=== PATIENT | male | born 1985 | race Caucasian/White ===

== ENCOUNTER 2017-03-11 17:31 | Inpatient (IN) | payer BC, OTHER ==
[~2017-03-11] VITALS: Ht 175.3 cm; Wt 77.1 kg
[2017-03-12 00:10] VITALS: BP 127/87
--- NOTE | 2017-03-12 00:10 | NUR ---
Pre-admission assessment Patient is a 31-year old, male, seen at intake, AAOx4, no SOB and no anxiety noted at this time. Discussed with patient admission policies of the unit. Patient is coherent and able to respond to questions appropriately. Patient reported that he is from [place]. He reports NKA and with no history of seizure. With reported medical history of Spinal Fusion in 2012, Hand Surgery-both in 2016, Anxiety and Depression. Pt is ambulatory with steady gait. Pt reports that he has been using these substances: 1) Zwkledo-Ffuxh-Kv reports drinking since 18 years old, but for the past 1 year has been consuming "a varied amount" of Vodka 3-4times a week, per pt "depending on my mood", last drink was 03/11/17 at 2200, 2 travel bottles of Vodka. 2) Xanax-Pt reports taking since 18 years old, but for the past 2 weeks has been taking 2-4 mg PO daily, last took was 2mg at 1700. 3) Heroin-Pt reports using daily via IV since 09/2016, 1.0 to 1.5 gm, last used 03/11/2017 at 2330. 4) Methamphetamine- Pt reports using daily via IV since 09/2016, 0.6 to 0.8 gm, last used 03/11/2017 at 2330. Vital signs taken and as follows: ZZ=639/87, P=114, O2 sat on RA=96%, RR=22, T=98.8. Pt verbalized instructions and teachings regarding disposal of narcotic and other controlled home meds, unit protocols such as taking of vital signs Q4H and handling and disposal of contraband.
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
[2017-03-12] MEDS ORDERED: ALPR2TAB7 PO (01:53)
[2017-03-12] MEDS ORDERED: OXYC30TA86 PO (01:53)
[2017-03-12 02:04] LABS: ALANINE AMINOTRANSFERASE 22 U/L (16-63); ALKALINE PHOSPHATASE 95 U/L (50-136); AMYLASE 93 U/L (25-115); ASPARTATE AMINOTRANSFERASE 17 U/L (15-37); BILIRUBIN,TOTAL 0.5 mg/dL (0.2-1.0); CARBON DIOXIDE 30 mmol/L (21-32); CHLORIDE 100 mmol/L (98-107); GLUCOSE 127 mg/dL (74-106); LIPASE 83 U/L (73-393); MAGNESIUM 1.7 mg/dL (1.8-2.4); POTASSIUM 4.1 mmol/L (3.5-5.1); TOTAL PROTEIN, SERUM 7.4 g/dL (6.4-8.2); UREA NITROGEN, BLOOD 9 mg/dL (7-18)
[2017-03-12 02:06] LABS: ETHANOL < 3 MG/DL (0-0)
[2017-03-12 02:08] LABS: *AMPHETAMINE, URINE POSITIVE (NEGATIVE); *BARBITURATE, URINE NEGATIVE (NEGATIVE); *CANNABINOID, URINE NEGATIVE (NEGATIVE); *COCCAINE, URINE NEGATIVE (NEGATIVE); *OPIATE, URINE POSITIVE (NEGATIVE); *PHENCYCLIDINE SCREEN,URINE NEGATIVE (NEGATIVE)
[2017-03-12 02:18] LABS: THYROID STIMULATING HORMONE 1.028 mIU/mL (0.358-3.740)
[2017-03-12 02:38] LABS: HEMATOCRIT 38.6 % (40-50); HEMOGLOBIN 13.3 G/DL (14.0-18.0); MEAN CORPUSCULAR HGB CONC 35 g/dL (32.0-37.0); MEAN CORPUSCULAR VOLUME 81.2 FL (82.0-92.0); RED BLOOD CELL COUNT(AUTO) 4.75 MIL/UL (4.7-6.1); WHITE BLOOD COUNT (AUTO) 6.1 K/UL (4.0-11.2)
[2017-03-12 02:39] LABS: BASOPHILS % (AUTO) 0.3 % (0.0-2.0); EOSINOPHILS # (AUTO) 0.2 K/uL (0.0-0.7); EOSINOPHILS % (AUTO) 2.5 % (0.0-7.0); LYMPHOCYTES # (AUTO) 1.5 K/UL (0.8-4.8); LYMPHOCYTES % (AUTO) 25.4 % (20.5-51.5); MONOCYTES # (AUTO) 0.5 K/UL (0.1-1.30); MONOCYTES % (AUTO) 8.7 % (0.0-11.0); NEUTROPHILS # (AUTO) 3.8 K/UL (1.8-8.9); NEUTROPHILS % (AUTO) 63.1 % (38.5-71.5); PLATELET COUNT (AUTO) 207 K/UL (150-450)
[2017-03-12 04:00] VITALS: BP 118/78
--- NOTE | 2017-03-12 04:00 | NUR ---
COWS, CIWA DEFERRED Pt lying in bed with eyes closed noted to be asleep. Respirations 16, breathing even and unlabored. Safety measures in place. Will monitor.
--- NOTE | 2017-03-12 07:18 | NUR ---
END OF SHIFT Pt is a 31 year old male patient admitted on 03/12/17 for ETOH dependency. Pt is full code with NKA. He reports a PMHx of depression, anxiety, spinal fusion, and bilateral hand surgery. He did not receive or request PRN medications. He slept a total of 5 hrs, Intake: 500 mL, Void: x1, BM:0. COWS:3, CIWA:3. Pt remains alert and oriented x4, breathing even and unlabored. Safety measures in place. Endorsed to oncoming shift.
--- NOTE | 2017-03-12 07:55 | NUR ---
Start of shift note; Received report from night nurse. Patient is a 31 year old male admitted on 03/11/17 for ETOH/Opiate dependence. Patient to be evaluated by MD today. Patient is on full code status, regular diet, NKA. Patient reported history of anxiety,depression, spinal fusion, bilateral hand surgery. Magnesium to be replaced today per MD order. Patient is on fall and seizure precaution. Bed in lowest position, call light within reach. Will continue to monitor patient.
[2017-03-12 08:00] VITALS: BP 100/67
--- NOTE | 2017-03-12 09:00 | NUR ---
Magnesium supplement; Patient's magnesium is low (1.7), one time order for Magnesium oxide 400mg PO given for supplement per MD order
[2017-03-12 12:00] VITALS: BP 120/82
--- NOTE | 2017-03-12 13:00 | NUR ---
PRN medication; Patient's current CIWA score is 7 manifested by nausea, anxiety, hot and cold sweats,muscle aches, PRN Ativan 1mg PO given for CIWA >5 . PRN [id number] ODT also given for nausea. Will continue to monitor patient for effectiveness of medication.
--- NOTE | 2017-03-12 14:00 | NUR ---
Re-assessment; Patient's current CIWA score is 4, patient stated improvement of nausea, no anxiety noted. PRN Ativan and PRN Zofran are both effective.
--- NOTE | 2017-03-12 14:30 | NUR ---
MD order; ordered a 4 day Subutex taper to start tomorrow AM. Order was verified with MD and carried out.
--- NOTE | 2017-03-12 18:22 | NUR ---
End of shift note; Patient is AOX4. Patient is a 31 year old male admitted on 03/11/17 for ETOH/Opiate dependence. Patient to start 4 day Subutex taper tomorrow per MD order. Patient is on full code status, regular diet, NKA. Patient reported history of anxiety, depression, spinal fusion, bilateral hand surgery. Magnesium was supplemented. Patient remained compliant with treatment plan and medication regime. Patient is on fall and seizure precaution. Met all needs.
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
[2017-03-12 20:00] VITALS: BP 127/83
--- NOTE | 2017-03-12 20:28 | NUR ---
PRN BENADRYL, ROBAXIN, ZOFRAN, ATIVAN Pt complains of inability to sleep, body aches, nausea, anxiety and agitation. PRN Benadryl, Robaxin, Zofran SL and Ativan administered as ordered. CIWA:10 Will monitor effectiveness.
--- NOTE | 2017-03-12 21:00 | NUR ---
PRN ZOFRAN REASSESSMENT PRN medication effective. Pt lying in bed with eyes closed noted to be resting comfortably in bed. Will monitor.
--- NOTE | 2017-03-12 21:30 | NUR ---
PRN BENADRYL, ROBAXIN, ATIVAN REASSESSMENT PRN Benadryl ineffective. Pt still awake at this time, but reports feeling drowsy. PRN Robaxin effective. Pt reports decrease in body aches. PRN Ativan effective. Pt appears more calm, lying in bed and appears comfortable. CIWA:9. Will continue to monitor.
--- NOTE | 2017-03-12 23:03 | NUR ---
PRN SUBUTEX/CLONIDINE Pt complains of anxiety, agitation, and body aches. Pt observed with flushed face, diaphoresis, restlessness, and agitation. COWS:14, CIWA:10. PRN Subutex 4 mg and Clonidine administered as ordered for withdrawal symptoms. Safety measures in place. Will monitor effectiveness.
--- NOTE | 2017-03-12 23:33 | NUR ---
PRN SUBUTEX REASSESSMENT Pt complains of nausea with episode of vomiting. Pt observed with decrease in withdrawal symptoms. COWS decreased to 12. Will monitor.
--- NOTE | 2017-03-12 23:34 | NUR ---
PRN ZOFRAN IM/ATIVAN Pt observed with nausea and vomiting x1 unrelieved by Zofran SL. Pt complains of anxiety and is observed to be sitting on couch in room, flushed, diaphoretic and agitated. CIWA: 10. PRN Zofran IM and Ativan 1 mg administered as ordered. Will monitor effectiveness.
[2017-03-13] VITALS: BP 126/77
--- NOTE | 2017-03-13 00:03 | NUR ---
PRN CLONIDINE REASSESSMENT PRN medication effective. Pt lying in bed with eyes closed noted to be asleep. Breathing even and unlabored, respirations 16. Safety measures in place. Will monitor.
--- NOTE | 2017-03-13 00:04 | NUR ---
PRN ZOFRAN IM REASSESSMENT PRN medication effective. Pt lying comfortably in bed, breathing even and unlabored. No facial grimacing noted. Will continue to monitor.
--- NOTE | 2017-03-13 00:34 | NUR ---
PRN ATIVAN REASSESSMENT PRN medication effective. Pt noted to be lying in bed with eyes closed noted to be asleep. No facial grimacing noted. Breathing even and unlabored. Safety measures in place. Will monitor.
--- NOTE | 2017-03-13 02:57 | NUR ---
PRN VISTARIL/ZOFRAN Pt complains of anxiety and nausea and reports episode of vomiting x1. PRN Vistaril and Zofran SL administered as ordered. Safety measures in place. Will monitor effectiveness.
--- NOTE | 2017-03-13 03:30 | NUR ---
PRN ZOFRAN/VISTARIL REASSESSMENT PRN Zofran somewhat effective. Pt denies an episode of vomiting but still reports feeling nauseous. PRN Vistaril effective. Pt noted with decreased anxiety and appears more calm. Will monitor.
[2017-03-13 04:00] VITALS: BP 108/64
--- NOTE | 2017-03-13 05:25 | NUR ---
PRN CLONIDINE/ROBAXIN Pt complains of anxiety/agitation and body aches 12/31. PRN Clonidine and Robaxin administered as ordered. Will monitor effectiveness.
--- NOTE | 2017-03-13 06:25 | NUR ---
PRN CLONIDINE/ROBAXIN REASSESSMENT PRN Clonidine ineffective. Pt still noted with increased agitation/anxiety. PRN Robaxin effective. Pt reports decrease in body aches.
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
--- NOTE | 2017-03-13 07:28 | NUR ---
Start of shift note; Received report from night nurse. Patient is a 31 year old male admitted on 03/11/17 for ETOH/Opiate dependence. Patient to start 4 day Subutex taper today per MD order. Patient is on full code status, regular diet, NKA. Patient reported history of anxiety,depression, spinal fusion, bilateral hand surgery. Patient received PRN medications last night noted to be effective per endorsement. Patient is on fall and seizure precaution. Bed in lowest position, call light within reach. Will continue to monitor patient.
[2017-03-13 08:00] VITALS: BP 104/64
--- NOTE | 2017-03-13 10:13 | NUR ---
Re-assessment; Patient appears calm and comfortable at this time with current CIWA score of 7. Ativan noted to be effective.
--- NOTE | 2017-03-13 10:13 | NUR ---
MD order; Patient appears to be very anxious, agitated, hot and cold sweats with obvious signs and symptoms of withdrawals HR of 102 noted. Patient was also having SOB, HOB elevated, SPO2 of 98% noted on room air. MD was notified. MD ordered one time dose of Ativan 2mg PO one time only. Medication given to patient as ordered. Will continue to monitor patient.
--- NOTE | 2017-03-13 10:33 | NUR ---
PRN medication; Patient is complaining of nausea, PRN Zofran 4mg ODT given. Will continue to monitor patient for effectiveness of medication.
[2017-03-13 11:07] LABS: HEPATITIS B SURFACE AG Negative (Negative)
--- NOTE | 2017-03-13 11:31 | NUR ---
Re-assessment; Patient denies nausea at this time. PRN Zofran noted to be effective.
[2017-03-13 12:00] VITALS: BP 105/62
--- NOTE | 2017-03-13 12:53 | NUR ---
New order and PRN medication; Patient is complaining of low back pain rated 9/10 d/t history of back surgery. PRN Toradol 30mg IM given for severe pain. MD also ordered Vistaril 50mg QID, first dose given at 1230, 1300 dose non administered d/t medication order error per MD. Will continue to monitor patient. .
--- NOTE | 2017-03-13 13:53 | NUR ---
Re-assessment; Patient stated improvement of lower back pain, patient stated his pain went down to 4/10 from 9/10. Toradol PRN is effective.
[2017-03-13 16:00] VITALS: BP 106/60
--- NOTE | 2017-03-13 18:22 | NUR ---
End of shift note; Patient is AOX4. Patient is a 31 year old male admitted on 03/11/17 for ETOH/Opiate dependence. Patient to start 4 day Subutex taper tomorrow per MD order. Patient is on full code status, regular diet, NKA. Patient reported history of anxiety, depression, spinal fusion, bilateral hand surgery. Magnesium was supplemented. Patient remained compliant with treatment plan and medication regime. Patient's last COWS score is 5 and last CIWA score is 2 at 1600. Patient is on fall and seizure precaution. Met all needs.
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
--- NOTE | 2017-03-13 19:45 | NUR ---
PRN TORADOL Pt complains of lower back pain 01/31 related to spinal fusion. PRN Toradol IM administered as ordered for pain. Will monitor effectiveness.
[2017-03-13 20:00] VITALS: BP 107/74
--- NOTE | 2017-03-13 20:15 | NUR ---
PRN TORADOL REASSESSMENT PRN medication effective. Pt observed to be resting comfortably in bed, no facial grimacing noted. Pain decreased to 5/10. Will monitor.
[2017-03-14] VITALS: BP 100/60
--- NOTE | 2017-03-14 | NUR ---
COWS/CIWA DEFERRED Pt lying in bed with eyes closed noted to be asleep. Respirations 16, breathing is even and unlabored. Safety measures in place. Will monitor.
--- NOTE | 2017-03-14 03:43 | NUR ---
PRN TORADOL Pt complains of lower back pain 03/03. PRN Toradol administered as ordered. Will monitor effectiveness.
[2017-03-14 04:03] VITALS: BP 95/55
--- NOTE | 2017-03-14 04:08 | NUR ---
PRN ROBAXIN Pt complains of muscle aches 12/01. PRN Robaxin administered as ordered. Safety measures in place. Will monitor effectiveness.
--- NOTE | 2017-03-14 04:15 | NUR ---
PRN TORADOL REASSESSMENT PRN medication somewhat effective. Pt still reports lower back pain unrelieved at this time. Will monitor
--- NOTE | 2017-03-14 05:08 | NUR ---
PRN ROBAXIN REASSESSMENT PRN medication effective. Pt lying in bed with eyes closed noted to be asleep. No facial grimacing noted. Respirations 16, breathing is even and unlabored. Safety measures in place. Will monitor.
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
[2017-03-14 08:06] LABS: BASOPHILS % (AUTO) 0.3 % (0.0-2.0); EOSINOPHILS # (AUTO) 0.1 K/uL (0.0-0.7); HEMOGLOBIN 13.8 G/DL (14.0-18.0); LYMPHOCYTES # (AUTO) 1.6 K/UL (0.8-4.8); LYMPHOCYTES % (AUTO) 26.6 % (20.5-51.5); MEAN CORPUSCULAR HEMOGLOBIN 26.8 UUG (27.0-31.0); MEAN CORPUSCULAR HGB CONC 33 g/dL (32.0-37.0); MEAN CORPUSCULAR VOLUME 81.4 FL (82.0-92.0); MONOCYTES # (AUTO) 0.5 K/UL (0.1-1.30); MONOCYTES % (AUTO) 8.6 % (0.0-11.0); NEUTROPHILS # (AUTO) 3.8 K/UL (1.8-8.9); NEUTROPHILS % (AUTO) 62.5 % (38.5-71.5); PLATELET COUNT (AUTO) 227 K/UL (150-450); RED BLOOD CELL COUNT(AUTO) 5.16 MIL/UL (4.7-6.1)
[2017-03-14 08:18] VITALS: BP 117/81
[2017-03-14 08:55] LABS: MAGNESIUM 2.1 mg/dL (1.8-2.4); PHOSPHOROUS 4.2 mg/dL (2.5-4.9); POTASSIUM 4.2 mmol/L (3.5-5.1)
--- NOTE | 2017-03-14 09:33 | NUR ---
PRN ATIVAN 1MG Patient's CIWA is 8, complains of withdrawal (nausea, stomach cramps, body aches, anxiety, tremors, chills). Patient received Ativan 1mg po. Will continue to monitor patient.
--- NOTE | 2017-03-14 09:52 | NUR ---
START OF SHIFT Received report from plant operator/shift supervisor nurse. Patient is 31 year old male admitted for medically supervised withdrawal from alcohol and opiates. Patient is full code with NKA. Patient on 4-day subutex taper. On assessment this AM: CIWA: 8 and COWS: 9. Denies SOB, chest pain. Patients vitals signs WNL. Reports anxiety, body aches, nausea, body aches, stomach cramps, tremors and clammy skin. Med compliant with AM meds. PRN Ativan 1mg po given (CIWA 8). Patient was encouraged to attend group meetings today. Will continue to monitor patient.
--- NOTE | 2017-03-14 10:23 | NUR ---
PRN ONDANSETRON ODT Patient complains of nausea, no vomiting. PRN ondansetron ODT given. Will continue to monitor patient.
--- NOTE | 2017-03-14 10:24 | NUR ---
PRN TORADOL IM INJECTION Patient complains of pain 8/10, low back and both legs. PRN toradol IM injection given. will continue to monitor patient.
--- NOTE | 2017-03-14 10:33 | NUR ---
REASSESSMENT PRN ATIVAN 1MG Patient's current CIWA is 5, medication effective.
--- NOTE | 2017-03-14 10:54 | NUR ---
REASSESSMENT PRN TORADOL IM INJECTION Patient reports pain decreased to 5/10.
--- NOTE | 2017-03-14 11:23 | NUR ---
REASSESSMENT PRN ONDANSETRON ODT Patient reports nausea improved, med effective.
--- NOTE | 2017-03-14 11:33 | NUR ---
Endorsed patient to MAURICE Pace.
--- NOTE | 2017-03-14 11:35 | NUR ---
received pt from day shift nurseAndria pt is in stable condition at this time
[2017-03-14 13:00] VITALS: BP 105/65
--- NOTE | 2017-03-14 13:38 | NUR ---
Therapist prompted client about group times. Client stated he will attend all groups.
[2017-03-14 17:33] VITALS: BP 100/62
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
--- NOTE | 2017-03-14 19:34 | NUR ---
end of shift note: pt is in stable condition no s/s of pain or discomfort, pt was started on an ativan taper today. no A/R noted. pt is depressed verbalized to pt will speak with psychiatrist regarding concerns. pt did not attend groups or activities. will endorse pt to awake overnight counselor nurse
[2017-03-14 20:00] VITALS: BP 99/65
--- NOTE | 2017-03-14 21:00 | NUR ---
CLONIDINE HELD Clonidine held d/t BP 99/65, per order to hold if BP <100/70. Safety measures in place. Call light within reach. Will continue to monitor.
[2017-03-15] VITALS: BP 84/45
--- NOTE | 2017-03-15 | NUR ---
VITAL SIGNS BP 84/45, P 78, R 15, 02 95%, T 97.7 PA 0 COWS/CIWA deferred, pt is laying in bed with eyes closed, to be assessed when pt is awake per orders. Respirations even and unlabored. Safety measures in place. Call light within reach. Will continue to monitor.
[2017-03-15 04:00] VITALS: BP 111/74
--- NOTE | 2017-03-15 04:00 | NUR ---
VITAL SIGNS BP 111/74, P 51, R 16, 02 99%, T 97.7, PA 0/10 COWS/CIWA deferred, pt is laying in bed with eyes closed, to be assessed when pt is awake per orders. Respirations even and unlabored. Safety measures in place. Call light within reach. Will continue to monitor.
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
[2017-03-15 08:00] VITALS: BP 97/60
--- NOTE | 2017-03-15 08:05 | NUR ---
START OF SHIFT: RECEIVED PT A/O X 4. HE PRESENTS WITH FLAT AFFECT AND DEPRESSED MOOD. POOR EYE CONTACT NOTED. HE DENIES S/I AND H/I BUT DOES REPORT DEPRESSION,ANXIETY, BODY ACHES AND BACK PAIN 12/31. COWS 4 CIWA 4 MODIFIED ATIVAN AND SUBUTEX TAPER IN PROGRESS. PRN MOTRIN GIVEN TO MANAGE PAIN. WILL MONITOR EFFECTIVENESS OF PRN MED. PPD NEGATIVE. ENCOURAGED GROUP ATTENDANCE TO IMPROVE COPING SKILLS AND PREVENT RELAPSE. WILL CONTINUE TO MONITOR AND PROVIDE SAFE AND SUPPORTIVE ENVIRONMENT.
[2017-03-15 12:00] VITALS: BP 97/60
[2017-03-15 16:00] VITALS: BP 90/60
--- NOTE | 2017-03-15 16:54 | NUR ---
Therapist prompted client about group times. Client stated he did not go today because he is not feeling well. Client reports he will try to go to all groups tomorrow.
--- NOTE | 2017-03-15 18:37 | NUR ---
END OF SHIFT: PT CONTINUES ON ON MODIFIED SUBUTEX/ATIVAN TAPER. HE ISOLATES IN HIS ROOM AND SPENT MOST OF THE SHIFT IN BED. HE REPORTS DEPRESSION AND DENIES S/I AND H/I. CLINICAL TEAM MADE AWARE. LAST COWS 2 CIWA 1. ENCOURAGED PT TO INTERACT WITH PEERS AND ATTEND GROUPS BUT HE REFUSED. WILL CONTINUE TO MONITOR AND OFFER SUPPORT.
--- NOTE | 2017-03-15 19:05 | NUR ---
Start of Shift Patient Received. Patient is in his room, in bed with eyes close, responsive to verbal stimuli. Breathing even and non labored. No signs of pain or discomfort noted. Patient noted to be emotional. Patient is a 31 year old male admitted on 03/12/17 for ETOH and Opiate Dependence under the care of Dr. Bañuelos. Patient is currently receiving a modified Subutex and Ativan taper. Patient verbalizes no known allergies, wishes to be full code, following a regular diet, placed on fall and seizure precautions, skin noted intact. Past medical history noted as anxiety, depression, spinal fusion (2011), bilateral hand surgery (2015). Per endorsement, patient noted to be isolative to room, emotional, loss of appetite, and avoids eye contact. Patient reports feelings of depression but denies suicidal ideations. Patient was encouraged to attend social activities and group meetings but patient refused. Last noted CIWA 1 and COWS 2. All needs attended to promptly. Will continue plan of care as ordered.
[2017-03-15 20:24] VITALS: BP 130/82
--- NOTE | 2017-03-15 22:00 | NUR ---
PRN Medication Administration Patient verbalizing pain or 8/10 to lower back due to spinal fusion. PRN Toradol administered as per order. Will continue to monitor for effectiveness of medication
--- NOTE | 2017-03-15 23:00 | NUR ---
PRN Medication Reassessment Patient is a able to verbalize medication was effective in minimizing pain. Patient is able to verbalize tolerable pain of 4/10. Will continue to monitor.
[2017-03-16 00:10] VITALS: BP 98/53
[2017-03-16 04:49] VITALS: BP 97/60
--- NOTE | 2017-03-16 07:31 | NUR ---
End of Shift Patient is in bed sleeping but arousable to verbal stimuli. Breathing even and non labored. No pain or discomfort noted. Patient is a 31 year old male admitted on 03/12/17 for ETOH and Opiate Dependence. Patient is currently receiving a modified Subutex and Ativan taper. No known allergies, Full code, following a regular diet, placed on fall and seizure precautions, skin noted intact. Past medical history noted as anxiety, depression, spinal fusion (2012), bilateral hand surgery (2016). Patient was given PRN Toradol for increased lower back pain. Patient noted to go out for smoke breaks, noted to have snacks at bedside, and able to verbalize feelings. Offered support and patient was receptive. Last noted CIWA 2 and COWS 3. All needs attended to promptly. Will endorse to continue plan of care as ordered. Addendum: 03/16/17 at 0731 by UMESH SALAS LVN Amended: Links added.
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
[2017-03-16 08:20] VITALS: BP 95/68
--- NOTE | 2017-03-16 09:43 | NUR ---
PRN ZOFRAN Patient c/o increase nausea, patient was administered Zofran as ordered, will monitor effectiveness of medication.
--- NOTE | 2017-03-16 11:36 | NUR ---
ZOFRAN REASSESSMENT Patient reports medication effective no longer feels nausea, will continue to monitor.
--- NOTE | 2017-03-16 12:07 | NUR ---
PRN TORADOL Patient c/o back pain 01/31, provided with non pharmacological interventions with no relief, patient administered Toradol injection as ordered, injection well tolerated. will monitor effectiveness of medication.
[2017-03-16] MEDS ORDERED: IBUP-1955 PO (12:37)
[2017-03-16] MEDS ORDERED: GABA-534 PO (12:37)
[2017-03-16] MEDS ORDERED: TRAZ-144 PO (12:37)
[2017-03-16] MEDS ORDERED: CLON0.1T14 PO (12:37)
[2017-03-16] MEDS ORDERED: HYDR-3895 PO (12:37)
[2017-03-16] MEDS ORDERED: DICY20TA28 PO (12:37)
[2017-03-16] MEDS ORDERED: BACL20TA PO (12:37)
[2017-03-16 12:58] VITALS: BP 99/65
--- NOTE | 2017-03-16 13:07 | NUR ---
TORADOL REASSESSMENT Patient reports medication effective, current pain level 2/10, tolerable as per patient, will continue to monitor.
[2017-03-16 17:20] VITALS: BP 104/65
--- NOTE | 2017-03-16 19:00 | NUR ---
END OF SHIFT Patient alert and oriented x4, patient compliant with therapeutic plan of care. Vital signs were stable during shift. Patient completed Subutex and Ativan taper as ordered, medications were well tolerated, no ASE noted. Patient is scheduled to be discharged tomorrow, noted with increase in appetite during shift, encouraged to continue consuming adequate Meal intake as tolerated. Patient noted consuming PO fluid, well tolerated. 0900 assessment presented with: c/o chills, mild bone and joint aches, nausea, irritable, anxiety, and barely sweating with cow score of: 6 and ciwa score of: 4; 1300 assessment patient presented with: anxiety with cow score of: 2 and ciwa score of: 2; 1700 assessment patient presented with: mild anxiety with cow score of: 1, and ciwa score of: 1. Detox medication effective at reducing withdrawal symptom. Patient was encouraged to increase PO fluid intake as tolerated. Patient was administered PRN: Zofran PO ordered for N/V, medication effective one hour post administration, Patient was also administered Toradol injection for back pain, as ordered, medications were effective. Patient denies SI/HI. Encouraged to attend group therapies/sessions to learn new coping skills to prevent relapse, MD is aware of patients current status, continues under close observation. Patient endorsed to shift manager nurse, all pertinent information discussed.
--- NOTE | 2017-03-16 19:10 | NUR ---
Start of Shift Patient Received. Patient is in activities room participating in group meeting. Patient is a 31 year old male admitted on 03/12/17 for ETOH and Opiate Dependence. Patient received a modified Subutex and Ativan taper. No known allergies, Full code, following a regular diet, placed on fall and seizure precautions, skin noted intact. Per endorsement, patient was given PRN Zofran and Toradol with medications noted to be effective. Last noted COWS 1 and CIWA 1. Patient is set for discharge tomorrow 03/16/17. All needs attended to promptly. Will continue plan of care as ordered.
[2017-03-16 20:27] VITALS: BP 127/82
--- NOTE | 2017-03-16 20:30 | NUR ---
PRN Medication Administration Patient verbalizing increased anxiety, muscle spasm and inability of falling asleep. PRN Robaxin, Vistaril, Trazodone administered as per order. Will continue to monitor.
--- NOTE | 2017-03-16 21:30 | NUR ---
PRN Medication Reassessment Patient was given PRN Vistaril, Robaxin, and Trazodone for increased anxiety, muscle spasms, and inability of falling asleep. Patient is in bed sleeping. Breathing even and non labored. No facial grimacing. PRN medication noted to be effective. Will continue to monitor.
[2017-03-17] VITALS: BP 96/58
[2017-03-17 04:20] VITALS: BP 119/76
--- NOTE | 2017-03-17 07:09 | NUR ---
End of Shift Patient is in bed sleeping. Breathing even and non labored. No signs of pain or discomfort. Patient is a 31 year old male admitted on 03/12/17 for ETOH and Opiate Dependence. Patient completed a modified Subutex and Ativan taper. No known allergies, Full code, following a regular diet, placed on fall and seizure precautions, skin noted intact. Patient was given PRN Robaxin, Vistaril, and Trazodone with medications noted to be effective. Patient slept 5 hours. Last noted CIWA 2 and COWS 3. Patient is set for discharge today 03/16/17. All needs attended to promptly. Will endorse to continue plan of care as ordered. Addendum: 03/17/17 at 0709 by UMESH SALAS LVN Amended: Links added.
--- NOTE | 2017-03-17 07:44 | NUR ---
START OF SHIFT Received report from night nurse, 31 year old male admitted on 03/11/17 for ETOH, Heroin, and Methamphetamine dependence. Pt has completed Ativan and Subutex taper and is medically cleared for discharge toy. Pt does not present with acute s/s of withdrawal at this time. Pt s/s have been well managed with ordered medications. PRN Robaxin, Vistaril and Trazodone administered and effective. Pt slept for 5 hours. Most recent CIWA 2 and COWS 3. Pt is ambulatory with a steady gait. RR even and unlabored. All needs met at this time. Will continue to monitor.
[2017-03-17 08:18] VITALS: BP 117/74
[2017-03-17 08:58] VITALS: BP 117/81
--- NOTE | 2017-03-17 09:32 | NUR ---
D/C NOTE Pt is A/O x4. V/S remain WNL. Pt denies SI/HI or hallucinations. Pt shows no s/s of acute withdrawal at this time, and is stable COWS 2 and CIWA 2. pT was compliant with ordered medications. MD has medically cleared pt for d/c . Education on Hepatitis C, smoking cessation and medication side effects provided. Pt verbalizes understanding. All pt belongings are in belonging bag, including prescriptions, pt did not have any home medications. Refuses PNU vaccination. Pt is being accompanied by [employer] at this time to be transported to rehab. All needs met.
== END 2017-03-17 09:32 | disposition other institution (70) | DRG 895 ==
LOC: SRC 23:23
PROVIDERS: ADMIT Internal Medicine; ATTEND Internal Medicine
PROC: HZ2ZZZZ Detoxification Services for Substance Abuse Treatment (ICD-10-PCS; principal; 2017-03-11)
PROC: HZ31ZZZ Individual Counseling for Substance Abuse Treatment, Behavioral (ICD-10-PCS; 2017-03-14)
PROC: HZ41ZZZ Group Counseling for Substance Abuse Treatment, Behavioral (ICD-10-PCS; 2017-03-14)
DX: F11.23 Opioid dependence with withdrawal (principal); F15.20 Other stimulant dependence, uncomplicated; E83.42 Hypomagnesemia; F32.9 Major depressive disorder, single episode, unspecified; F10.10 Alcohol abuse, uncomplicated; D50.9 Iron deficiency anemia, unspecified; F41.9 Anxiety disorder, unspecified; F13.230 Sedative, hypnotic or anxiolytic dependence with withdrawal, uncomplicated; Y90.9 Presence of alcohol in blood, level not specified; Z98.1 Arthrodesis status; Z59.0 Homelessness; F17.210 Nicotine dependence, cigarettes, uncomplicated; G89.29 Other chronic pain; M54.5 Low back pain; R73.9 Hyperglycemia, unspecified
CPT/HCPCS: 36415; 70030-TC; 80307; 80324; 80361; 83690; 83735; 84100; 84443; 85025; 86580; 86592; 86705; 86803; 87340; 87806; A4663; G0480; J1885; J2405; Q0162; Q0163

== ENCOUNTER 2017-05-17 14:13 | Emergency (ER) | payer BC, OTHER ==
[~2017-05-17] VITALS: Ht 175.3 cm; Wt 77.1 kg
[~2017-05-17 14:13] MED LIST: BACL20TA PO; CLON0.1T14 PO; DICY20TA28 PO; GABA-534 PO; HYDR-3895 PO; IBUP-1955 PO; TRAZ-144 PO
[2017-05-17] MEDS ORDERED: LEXAPRO PO (14:26)
--- NOTE | 2017-05-17 14:40 | NUR ---
Pt is refusing blood draw, notified.
[2017-05-17] MEDS ORDERED: LORAZEPAM 2 MG/1 ML VIAL IM ONE (14:45)
--- NOTE | 2017-05-17 14:45 | NUR ---
[employer] removed hand cuffs and left. Pt placed in 2 point velcro restrains as per Dr. Pearl order. Dr. Pearl at bedside, security system analyst at bedside for 1:1 observation.
--- NOTE | 2017-05-17 15:00 | NUR ---
Pt is more cooperative, left leg restraint removed.
[2017-05-17 15:03] LABS: BASOPHILS % (AUTO) 0.4 % (0.0-2.0); EOSINOPHILS # (AUTO) 0.1 K/uL (0.0-0.7); EOSINOPHILS % (AUTO) 0.8 % (0.0-7.0); LYMPHOCYTES # (AUTO) 1.1 K/UL (0.8-4.8); MEAN CORPUSCULAR HEMOGLOBIN 28.5 UUG (27.0-31.0); MEAN CORPUSCULAR HGB CONC 35 g/dL (32.0-37.0); MONOCYTES # (AUTO) 0.6 K/UL (0.1-1.30); MONOCYTES % (AUTO) 6.7 % (0.0-11.0); NEUTROPHILS # (AUTO) 6.8 K/UL (1.8-8.9); NEUTROPHILS % (AUTO) 79.1 % (38.5-71.5); PLATELET COUNT (AUTO) 280 K/UL (150-450); RED BLOOD CELL COUNT(AUTO) 5.61 MIL/UL (4.7-6.1); WHITE BLOOD COUNT (AUTO) 8.6 K/UL (4.0-11.2)
[2017-05-17 15:04] LABS: CARBON DIOXIDE 26 mmol/L (21-32); CHLORIDE 108 mmol/L (98-107); GLUCOSE 113 mg/dL (74-106); POTASSIUM 3.6 mmol/L (3.5-5.1); UREA NITROGEN, BLOOD 8 mg/dL (7-18)
[2017-05-17 15:07] LABS: ETHANOL < 3 MG/DL (0-0)
[2017-05-17] MEDS ORDERED: LORAZEPAM 2 MG/1 ML VIAL ONE (15:09)
--- NOTE | 2017-05-17 15:15 | NUR ---
Pt is resting comfortably at this time and is calm and cooperative. Restraints removed, cyber security remains at bedside for 1:1 observation.
[2017-05-17 15:17] LABS: ALANINE AMINOTRANSFERASE 32 U/L (16-63); ALKALINE PHOSPHATASE 71 U/L (50-136); ASPARTATE AMINOTRANSFERASE 16 U/L (15-37); BILIRUBIN,DIRECT 0.1 mg/dL (0.0-0.2); BILIRUBIN,TOTAL 0.3 mg/dL (0.2-1.0); TOTAL PROTEIN, SERUM 7.3 g/dL (6.4-8.2)
[2017-05-17 15:20] LABS: ACETAMINOPHEN < 2.0 ug/mL (10-30)
--- NOTE | 2017-05-17 16:15 | NUR ---
Dr. Pearl requested crisis team for psych eval, per on-all schedule there in nobody on-call until 1700. Will call Roxana at 1700.
--- NOTE | 2017-05-17 17:15 | NUR ---
Spoke with Roxana who stated she is not on-call today and to call Art.
--- NOTE | 2017-05-17 17:20 | NUR ---
Spoke with Art (for psych eval) who stated he is at [facility] and will come here after.
--- NOTE | 2017-05-17 17:21 | NUR ---
Pt is resting in gurney with no s/s of acute distress noted, network security analyst remains at bedside.
--- NOTE | 2017-05-17 18:10 | NUR ---
Martin Ramsay at bedside for psych eval.
--- NOTE | 2017-05-17 18:45 | NUR ---
Per Martin pt is clear and may be d/c. Written and verbal after care instructions given. Patient verbalizes understanding of instructions. Pt requested I call Gray Crandall ([phone]) from his sober living facility who will pick him up from the ER. I spoke with Gray who stated he is out of town but will make arrangements for the pt to be picked up, stated he will call back with further info.
--- NOTE | 2017-05-17 18:55 | NUR ---
Pt stated he has his cell phone and will make arrangements himself to get back to his facility. Pt a/o x4, and ambulated out of ER with steady gait.
== END 2017-05-17 18:58 | disposition home or self-care (01) ==
LOC: ER 14:14
DX: G47.00 Insomnia, unspecified (principal); F32.9 Major depressive disorder, single episode, unspecified; F41.9 Anxiety disorder, unspecified; X78.9XXA Intentional self-harm by unspecified sharp object, initial encounter; Y92.89 Other specified places as the place of occurrence of the external cause; Y93.89 Activity, other specified; Y99.8 Other external cause status
CPT/HCPCS: 36415; 80048; 80076; 85025; 96372; 99284; A4663; G0480 ×2; G0481; J2060